=== PATIENT | male | born 1970 | race American Indian/Alaskan Native ===

== ENCOUNTER 2021-03-18 10:54 | Emergency (ER) | payer SELFPAY ==
--- NOTE | 2021-03-18 11:24 | Event Note ---
ED Screening Note ED Screening Note: mumbling; incomprehensible words; rambling; rocking in chair states has schizophrenia- on "viagra" for it no hi no si unkempt This initial assessment/diagnostic orders/clinical plan/treatment(s) is/are subject to change based on patients health status, clinical progression and re- assessment by fellow clinical providers in the ED. Further treatment and workup at subsequent clinical providers discretion. Patient/guardian urged not to elope from the ED as their condition may be serious if not clinically assessed and managed. Initial orders include: MHE
--- NOTE | 2021-03-18 11:51 | Emergency Department Report ---
ED General Adult HPI - General Chief complaint: Medical Clearance Stated complaint: MED REFILL Time Seen by Provider: 03/18/21 11:23 Source: patient Mode of arrival: Ambulatory Limitations: No Limitations - History of Present Illness Initial comments: Patient came in because he wanted medical clearance from psychiatric perspective. He actually states that he just needs something to eat and a dose of his Depakote. He admits that he is supposed to be on Depakote. He has not been taking it. He has a prescription that he can clam picker. He states that he has a ride coming here and that he is hungry. He is not suicidal. Is not homicidal. He knows that he is [facility] and in the hospital. Patient states that he does not want to be admitted. He does not believe he needs to be admitted. He would just like something to eat and a dose of his medication until he can clam picker his prescription tomorrow. He has no chest pain or shortness of breath. He has no back pain. Has no vomiting or diarrhea. There is no history of recent travel or trauma. - Related Data Allergies Allergy/AdvReac Type Severity Reaction Status Date / Time codeine Allergy Unknown Verified 03/18/21 10:58 ED Review of Systems ROS: Stated complaint: MED REFILL Other details as noted in HPI Comment: All other systems reviewed and negative Constitutional: denies: fever Eyes: denies: eye pain ENT: denies: throat pain Respiratory: denies: cough Cardiovascular: denies: chest pain Endocrine: denies: unexplained weight gain Gastrointestinal: denies: abdominal pain Genitourinary: denies: dysuria Skin: denies: rash Neurological: denies: headache Hematological/Lymphatic: denies: easy bruising ED Past Medical Hx - Past Medical History Previous Medical History?: Yes Additional medical history: Schizophrenia - Surgical History Past Surgical History?: No - Family History Family history: other (Psychiatric disease) - Social History Smoking Status: Current Every Day Smoker (We discussed tobacco cessation x3 minutes) ED Physical Exam - General Limitations: No Limitations, Other (Pulse ox was noted and normal on my exam. He was 96%) General appearance: alert, in no apparent distress - Head Head exam: Present: atraumatic, normocephalic, normal inspection - Eye Eye exam: Present: normal appearance, EOMI. Absent: scleral icterus - ENT ENT exam: Present: normal exam, normal orophraynx, other (Edentulous) - Neck Neck exam: Present: normal inspection, meningismus - Respiratory Respiratory exam: Present: normal lung sounds bilaterally. Absent: respiratory distress - Cardiovascular Cardiovascular Exam: Present: regular rate, normal rhythm - GI/Abdominal GI/Abdominal exam: Present: soft. Absent: tenderness - Extremities Exam Extremities exam: Present: normal capillary refill - Back Exam Back exam: Absent: CVA tenderness (R), CVA tenderness (L) - Neurological Exam Neurological exam: Present: alert, oriented X3, CN II-XII intact, normal gait. Absent: motor sensory deficit - Psychiatric Psychiatric exam: Present: normal affect, normal mood - Skin Skin exam: Present: warm, dry ED Course - Reevaluation(s) Reevaluation #1: 03/18/21 19:07 Patient was seen as above. 03/18/21 19:07 ED Medical Decision Making - Medical Decision Making I really do not believe he needs psychiatric evaluation or clearance. The patient is not suicidal or homicidal. He is not delusional. He is not responding to extraneous stimuli. He admits that he has been noncompliant with medication and would like to get back on his medication. He does demonstrate insight into his situation. He was given something to eat. He was given Depakote and subsequently discharged. He is not tachycardic or febrile. I am not concerned for infectious pathology. He does not have a persistent tachycardia or evidence of psychomotor agitation suggest thyrotoxicosis. Critical Care Time: No Critical care attestation.: If time is entered above; I have spent that time in minutes in the direct care of this critically ill patient, excluding procedure time. ED Disposition Clinical Impression: Noncompliance Disposition: 01 HOME / SELF CARE / HOMELESS Is pt being admited?: No Condition: Stable Additional Instructions: Continue your Depakote. Drink plenty of water. Follow-up with a regular doctor. If you do not have a regular doctor, follow-up with the referral physician. If you change your mind about needing to see a therapist, please return. Referrals: JOSE FREDERICK MD [Primary Care Provider] - 3-5 Days VINCENT BYRNE MD [Staff Physician] - 3-5 Days
[2021-03-18] MEDS ORDERED: DIVALPROEX ER 500 MG TAB PO ONE (11:52)
== END 2021-03-18 12:00 | disposition home or self-care (01) ==
LOC: EDBD → ED 10:54
DX: Z91.14 Patient's other noncompliance with medication regimen (principal)
CPT/HCPCS: 99283